=== PATIENT | male | born 1945 | race Caucasian/White ===

== ENCOUNTER → 2017-06-26 | Day surgery (SDC) | payer MEDICARE ==
[~2017-06-26] VITALS: Ht 180.3 cm; Wt 79.4 kg
[~2017-06-26] MED LIST: AVPAK PRIMIDONE50 M1 PO; TRIHEXYPHENIDYL2 M3 PO
--- NOTE | ~2017-06-26 | O ---
[place], [place] OPERATIVE NOTE NAME: SANCHEZ MANZANARES [facility] #: [id number] UNIT #: [id number] ROOM: DOCTOR: MEGHANA WONG MD BIRTHDATE: [birth year] DOS: 06/26/2017 PREOPERATIVE DIAGNOSIS: Cataract, left eye. POSTOPERATIVE DIAGNOSIS: Cataract, left eye. OPERATION: Extracapsular cataract extraction by phacoemulsification with posterior chamber intraocular lens implantation, left eye. ANESTHESIA: Monitored standby. OPERATIVE FINDINGS AND PROCEDURE: 2% Xylocaine topical anesthetic gel was applied to the eye in the preop area. The patient was taken to the operating room and prepped and draped in the standard fashion for sterile intraocular surgery. A time out procedure was performed verifying correct patient, correct site and corrects lens with Andre Wong M.D. The operating microscope was swung into position and the lid speculum was inserted. Using a Sandra paracentesis blade, a paracentesis was made through clear cornea. Viscoelastic was used to fill the anterior chamber. Using a metal keratome a 2.4 mm self-sealing clear corneal cataract incision was made temporally at the limbus. Using a pre-bent 25 gauge cystotome needle, a standard continuous curvilinear capsulorrhexis was performed. The anterior capsule was removed with forceps. The lens nucleus was hydrodissected and phacoemulsified in the posterior chamber. Cortical material was removed with the irrigation aspiration hand piece and the posterior capsule was then polished with a curet under irrigation. The posterior chamber and capsular bag were filled with viscoelastic. A posterior chamber intraocular lens manufactured by: [employer], Model #[id number], and 21.5 diopters in strength were then inserted into the posterior chamber and within the capsular bag using the lens cartridge and injector system. Viscoelastic was removed using the irrigation aspiration handpiece. The anterior chamber was filled with balanced salt solution through the paracentesis. Both the paracentesis site and cataract incisions were hydrated with BSS and verified to be water-tight and self-sealing. Cefuroxime 1 mg/0.1 mL was injected into the anterior chamber through the paracentesis site. The incision checked to be water-tight using a Weck-Flavia sponge. The integrity of the cataract wound and ocular tension were checked. Lid speculum and drapes were removed. The patient was transferred from the operating room to the recovery room in satisfactory condition. [place], [place] OPERATIVE NOTE NAME: SANCHEZ MANZANARES UNIT #: [id number] ROOM: DOCTOR: MEGHANA WONG MD BIRTHDATE: [birth year] MEGHANA WONG MD CM:OPRECORD:OPERATIVE NOTE [id number] MEGHANA WONG MD 06/26/17 1208 interface
[2017-06-26 10:45] VITALS: BP 145/75
[2017-06-26 11:45] VITALS: BP 122/62
[2017-06-26 11:58] VITALS: BP 124/62
[2017-06-26 12:06] VITALS: BP 114/58
== END | disposition home or self-care (01) ==
LOC: SDC 06-24 14:00
DX: H25.812 Combined forms of age-related cataract, left eye (principal); Z87.891 Personal history of nicotine dependence; Z98.890 Other specified postprocedural states; G20 Parkinson's disease

== ENCOUNTER → 2017-07-03 | Day surgery (SDC) | payer MEDICARE ==
[~2017-07-03] VITALS: Ht 180.3 cm; Wt 79.4 kg
--- NOTE | ~2017-07-03 | O ---
[place], [place] OPERATIVE NOTE NAME: SANCHEZ MANZANARES [facility] #: [id number] UNIT #: [id number] ROOM: DOCTOR: MEGHANA WONG MD BIRTHDATE: [birth year] DOS: 07/03/2017 PREOPERATIVE DIAGNOSIS: Cataract, right eye. POSTOPERATIVE DIAGNOSIS: Cataract, right eye. OPERATION: Extracapsular cataract extraction by phacoemulsification with posterior chamber intraocular lens implantation, right eye. ANESTHESIA: Monitored standby. OPERATIVE FINDINGS AND PROCEDURE: 2% Xylocaine topical anesthetic gel was applied to the eye in the preop area. The patient was taken to the operating room and prepped and draped in the standard fashion for sterile intraocular surgery. A time out procedure was performed verifying correct patient, correct site and corrects lens with Andre Wong M.D. The operating microscope was swung into position and the lid speculum was inserted. Using a Sandra paracentesis blade, a paracentesis was made through clear cornea. Viscoelastic was used to fill the anterior chamber. Using a metal keratome a 2.4 mm self-sealing clear corneal cataract incision was made temporally at the limbus. Using a pre-bent 25 gauge cystotome needle, a standard continuous curvilinear capsulorrhexis was performed. The anterior capsule was removed with forceps. The lens nucleus was hydrodissected and phacoemulsified in the posterior chamber. Cortical material was removed with the irrigation aspiration hand piece and the posterior capsule was then polished with a curet under irrigation. The posterior chamber and capsular bag were filled with viscoelastic. A posterior chamber intraocular lens manufactured by: [employer], Model #[id number], and 21.0 diopters in strength were then inserted into the posterior chamber and within the capsular bag using the lens cartridge and injector system. Viscoelastic was removed using the irrigation aspiration handpiece. The anterior chamber was filled with balanced salt solution through the paracentesis. Both the paracentesis site and cataract incisions were hydrated with BSS and verified to be water-tight and self-sealing. Cefuroxime 1 mg/0.1 mL was injected into the anterior chamber through the paracentesis site. The incision checked to be water-tight using a Weck-Flavia sponge. The integrity of the cataract wound and ocular tension were checked. Lid speculum and drapes were removed. The patient was transferred from the operating room to the recovery room in satisfactory condition. [place], [place] OPERATIVE NOTE NAME: SANCHEZ MANZANARES UNIT #: [id number] ROOM: DOCTOR: MEGHANA WONG MD BIRTHDATE: [birth year] MEGHANA WONG MD CM:OPRECORD:OPERATIVE NOTE [id number] MEGHANA WONG MD 07/03/17 1339 interface
[2017-07-03 12:24] VITALS: BP 129/67
[2017-07-03 12:39] VITALS: BP 139/72
[2017-07-03 12:54] VITALS: BP 137/72
== END | disposition home or self-care (01) ==
LOC: SDC 07-01 15:30
DX: H25.811 Combined forms of age-related cataract, right eye (principal); G20 Parkinson's disease; Z87.01 Personal history of pneumonia (recurrent); Z98.49 Cataract extraction status, unspecified eye; Z98.890 Other specified postprocedural states; Z87.891 Personal history of nicotine dependence; Z79.899 Other long term (current) drug therapy